=== PATIENT | male | born 1955 | race Caucasian/White ===

== ENCOUNTER 2018-02-11 08:04 | Day surgery (SDC) | payer OTHER ==
[2018-02-11 08:53] VITALS: BMI 31.8
[2018-02-11 09:12] LABS: BASO % 0.7 % (0.0-2.0); EOS # 0.1 K/uL (0.0-0.7); EOS % 1.8 % (0.0-4.0); HEMOGLOBIN 15.3 g/dL (12.0-18.0); LYMPH # 2.2 K/uL (1.0-4.3); LYMPH % 36.5 % (20.0-40.0); MEAN CELL VOLUME 85.6 fL (80.0-94.0); MEAN CORPUSCULAR HEMOGLOBIN 28.8 pg (27.0-31.0); MEAN CORPUSCULAR HGB CONC 33.7 g/dL (33.0-37.0); MEAN PLATELET VOLUME 9.9 fL (7.2-11.7); MONO # 0.5 K/uL (0.0-0.8); MONO % 8.5 % (0.0-10.0); NEUT # 3.2 K/uL (1.8-7.0); NEUT % 52.5 % (50.0-75.0); NRBC % 0.1 % (0.0-2.0); RBC 5.31 Mil/uL (4.40-5.90); RED CELL DISTRIBUTION WIDTH 13.9 % (11.5-14.5); WHITE BLOOD COUNT 6.1 K/uL (4.8-10.8)
[2018-02-11 09:20] LABS: INR 1.2
[2018-02-11 09:21] LABS: PROTHROMBIN TIME 13.2 SECONDS (9.7-12.2)
[2018-02-11 09:41] LABS: ALB/GLOB RATIO 1.5 (1.0-2.1); ALBUMIN 4.5 g/dL (3.5-5.0); ALT/SGPT 27 U/L (21-72); AST/SGOT 22 U/L (17-59); BLOOD UREA NITROGEN 20 mg/dL (9-20); CALCIUM 9.5 mg/dl (8.6-10.4); GFR AFRICAN-AMERICAN > 60; GFR NON-AFRICAN AMERICAN > 60
[2018-02-11] MEDS ORDERED: Verapamil 2 ML ONE (10:34)
[2018-02-11] MEDS ORDERED: Iodixanol 320 MG/ML 200 ML BOTTLE IV ONE (10:35)
[2018-02-11] MEDS ORDERED: Midazolam 2 MG/2 ML VIAL ONE (10:35)
[2018-02-11] MEDS ORDERED: Lidocaine 2% MPF (5 ml) Inj ONE (10:35)
[2018-02-11] MEDS ORDERED: Nitroglycerin 50mg in D5W 50 MG/250 ML BOTTLE IV ONE (10:35)
--- NOTE | 2018-02-14 12:44 | CARD ---
APPROVED REPORT Date of service: 02/11/2018 EKG Measurement Heart [id number] <Conclusion> Normal sinus rhythm Normal ECG
--- NOTE | 2018-02-16 20:32 | CARDCATH ---
PROCEDURE DATE: 02/11/2018 PROCEDURES: 1. Left heart catheterization. 2. Coronary angiogram. 3. Aortic root angiogram. CLINICAL INDICATIONS: 1. Angina. 2. Diabetes. 3. Abnormal stress test. REFERRING PHYSICIAN: Erna Breen MD. PERFORMING PHYSICIAN: Carl Wise MD DESCRIPTION OF PROCEDURE: After informed consent, the patient was prepped and draped in the usual sterile fashion. Lidocaine 2% was given in the right wrist for local anesthesia. Using micropuncture technique, a 6-Mozambican sheath was introduced into right atrial artery. A JR4 6-[place]oz[place]ican diagnostic catheter crossed into left ventricle. LV end-diastolic pressure measured. Contrast injected and LV angiogram was done. Then, the catheter was pulled back across the aortic valve. Gradient across the aortic valve was measured. Then, the same catheter was engaged in the right coronary artery. Contrast injected and right coronary artery angiogram was done. A 6-Moz[place]ican [place] catheter engaged into left main coronary artery. Contrast injected and left coronary angiogram was done. A 6-Mozambican pigtail catheter introduced into ascending aorta. Contract injected and ascending aortic root angiogram performed. The patient tolerated the procedure well. Radiological supervision and radiological interpretation of the above mentioned angiograms were done. FINDINGS: 1. Left main coronary artery is patent. 2. LAD and diagonal branches are patent. 3. Left circumflex and obtuse marginal branches are patent. 4. Right coronary artery is dominant and patent. 5. LV ejection fraction is approximately 65%. No wall motion abnormality is noted. EDP is 18. No gradient across the aortic valve. 6. Ascending root angiogram confirms no dissection. No aortic aneurysm. IMPRESSION: 1. Normal coronaries. 2. Normal left ventricular systolic function. 3. Normal aortic root angiogram. Carl Wise MD
== END 2018-02-11 14:20 | disposition home or self-care (01) ==
LOC: C.CATHLAB 08:04
PROVIDERS: ATTEND Internal Medicine Cardiovascular Disease
DX: I20.9 Angina pectoris, unspecified (principal); R94.39 Abnormal result of other cardiovascular function study; E11.9 Type 2 diabetes mellitus without complications
CPT/HCPCS: 36415; 80053; 85025; 85610; 85730; 93005; 93452; C1769; C1887; C1894; J1644; J2001; J2250; J3010; Q9966

== ENCOUNTER 2018-09-12 22:21 | Inpatient (IN) | payer OTHER ==
[2018-09-12 22:22] VITALS: BMI 31.8
--- NOTE | 2018-09-12 22:33 | C.PDOC ---
History Of Present Illness 63 year old male presents to the ED c/o chest pain that started 30 minutes [employer]. Patient reports some SOB associated with his chest pain. Patient able to speak in full sentences, appears anxious. Patient denies fever, chills, nausea, vomit, diarrhea, headache, rash, weakness, numbness. Time Seen by Provider: 09/12/18 22:32 Chief Complaint (Nursing): Chest Pain History Per: Patient History/Exam Limitations: no limitations Onset/Duration Of Symptoms: Mins (30) Current Symptoms Are (Timing): Still Present Quality: "Pain" Recent travel outside of the [place]: No Additional History Per: Patient Past Medical History Reviewed: Historical Data, Nursing Documentation, Vital Signs Vital Signs: Last Vital Signs Temp 97.8 F 09/12/18 22:27 Pulse 89 09/12/18 22:27 Resp 16 09/12/18 22:27 BP 141/96 H 09/12/18 22:27 Pulse Ox 98 09/12/18 22:27 - Medical History PMH: No Chronic Diseases Surgical History: No Surg Hx Family History: States: No Known Family Hx - Social History Hx Alcohol Use: No Hx Substance Use: No Review Of Systems Constitutional: Negative for: Fever, Chills Eyes: Negative for: Vision Change Cardiovascular: Positive for: Chest Pain. Negative for: Palpitations Respiratory: Positive for: Shortness of Breath. Negative for: Cough Gastrointestinal: Negative for: Nausea, Vomiting, Abdominal Pain Skin: Negative for: Rash Neurological: Negative for: Weakness, Numbness, Headache, Dizziness Physical Exam - Physical Exam Appears: Non-toxic, No Acute Distress, Other (anxious) Skin: Warm, Dry Head: Normacephalic Eye(s): bilateral: Normal Inspection Neck: Supple Chest: Symmetrical Cardiovascular: Rhythm Regular Respiratory: No Rales, No Rhonchi, No Wheezing Gastrointestinal/Abdominal: Soft, No Tenderness, No Guarding, No Rebound Extremity: Bilateral: Atraumatic, Normal Color And Temperature, Normal ROM Neurological/Psych: Oriented x3, Normal Speech, Normal Cognition Gait: Steady ED Course And Treatment - Laboratory Results Result Diagrams: 09/12/18 22:42 09/12/18 22:42 ECG: Interpreted By Me, Viewed By Me ECG Rhythm: Sinus Rhythm (88), Nonspecific Changes O2 Sat by Pulse Oximetry: 98 (ON RA) Pulse Ox Interpretation: Normal - Radiology CXR: Interpreted by Me, Viewed By Me CXR Interpretation: Yes: Infiltrates (? rll). No: Cardiomegaly, Other (? small left effusion) - CT Scan/US CT chest Other Rad Studies (CT/US): Read By Radiologist, Radiology Report Reviewed CT/US Interpretation: EXAM: CTA Chest with Intravenous Contrast for Pulmonary Embolism. CLINICAL HISTORY: Sob and upper left chest pain. TECHNIQUE: Axial CTA images of the chest with intravenous contrast using a pulmonary embolism protocol. Reconstructed images were created and reviewed. 0.00 mGy-cm. CONTRAST: With; 100MLS OMNI 300 was administered without incident. COMPARISON: None provided. FINDINGS: PULMONARY ARTERIES. No evidence of central or segmental pulmonary embolism is seen. AORTA. There is no evidence for aneurysm or dissection of the thoracic aorta. LUNGS. Posterior bibasilar pneumonic consolidations are present; possibly consistent with aspiration pneumonitis. PLEURAL SPACES. No pleural effusion seen. No pneumothorax evident. HEART. Heart size is within normal limits. No pericardial effusion. LYMPH NODES. No lymphadenopathy is evident. BONES. No focal osseous abnormality or acute fracture. UPPER ABDOMEN. Images of the upper abdomen demonstrate hepatomegaly. The liver measured an estimated 17.6 cm in the midclavicular line. There is also seen to have been prior cholecystectomy. IMPRESSION: 1. No identification of pulmonary embolism. 2. Posterior bibasilar pneumonic consolidations. Possibly consistent with aspiration pneumonitis. 3. Mild hepatomegaly. Measurement is given above. 4. Status post cholecystectomy. . Electronically signed on Sep 13, 2018 12:08:44 AM EST by: Dony Martell M.D., Certified by JESSI, MSK, Neuroradiology Progress Note: Plan: - Labs. - EKG. - CXR. - Aspirin 325 mg PO. - Morphine 2 mg IVP. - Zofran 4 mg IVP. - UA Critical Care Time - Critical Care Note Total Time (in mins): 30 Documented critical care: time excludes all time spent performing seperately billable procedures. Disposition Discussed With : Erna Breen Comment: accepted the pt on his service and took over the care at 12:16AM Doctor Will See Patient In The: Hospital Counseled Patient/Family Regarding: Studies Performed, Diagnosis - Disposition Disposition: HOSPITALIZED Disposition Time: 00:16 Condition: GUARDED - POA Present On Arrival: Poor Glycemic Control - Clinical Impression Clinical Impression: Chest pain, Pneumonitis - Scribe Statement The provider has reviewed the documentation as recorded by the Scribe Mukund Dunne All medical record entries made by the Scribe were at my direction and personally dictated by me. I have reviewed the chart and agree that the record accurately reflects my personal performance of the history, physical exam, medical decision making, and the department course for this patient. I have also personally directed, reviewed, and agree with the discharge instructions and disposition. Decision To Admit - Pt Status Changed To: Hospital Disposition Of: Inpatient - Admit Certification Admit to Inpatient:: After my assessment, the patient will require hospitalization for at least two midnights. This is because of the severity of symptoms shown, intensity of services needed, and/or the medical risk in this patient being treated as an outpatient. - InPatient: Physician Admission Certification: I certify that this patient requires 2 or more midnights of care for the following reason:: After my assessment, the patient will require hospitalization for at least two midnights. This is because of the severity of symptoms shown, intensity of services needed, and/or the medical risk in this patient being treated as an outpatient. - . Bed Request Type: Telemetry Admitting Physician: Erna Breen Patient Diagnosis: Chest pain, Pneumonitis
[2018-09-12] MEDS ORDERED: Aspirin 325 mg EC Tablets PO STA (22:35)
[2018-09-12 22:45] LABS: BASO % 0.6 % (0.0-2.0); EOS # 0.2 K/uL (0.0-0.7); HEMOGLOBIN 15.4 g/dL (12.0-18.0); LYMPH # 2.6 K/uL (1.0-4.3); LYMPH % 33.1 % (20.0-40.0); MEAN CELL VOLUME 86.5 fL (80.0-94.0); MEAN CORPUSCULAR HEMOGLOBIN 28.9 pg (27.0-31.0); MEAN CORPUSCULAR HGB CONC 33.4 g/dL (33.0-37.0); MEAN PLATELET VOLUME 9.4 fL (7.2-11.7); MONO # 0.8 K/uL (0.0-0.8); MONO % 10.8 % (0.0-10.0); NEUT # 4.2 K/uL (1.8-7.0); NEUT % 53.5 % (50.0-75.0); NRBC % 0.1 % (0.0-2.0); RBC 5.31 Mil/uL (4.40-5.90); RED CELL DISTRIBUTION WIDTH 13.3 % (11.5-14.5); WHITE BLOOD COUNT 7.8 K/uL (4.8-10.8)
[2018-09-12 22:54] LABS: INR 1.1; PARTIAL THROMBOPLASTIN TIME 38 SECONDS (21-34); PROTHROMBIN TIME 12.3 SECONDS (9.7-12.2)
[2018-09-12 23:00] LABS: ALB/GLOB RATIO 1.5 (1.0-2.1); ALBUMIN 4.5 g/dL (3.5-5.0); ALT/SGPT 24 U/L (21-72); AST/SGOT 23 U/L (17-59); BLOOD UREA NITROGEN 23 mg/dL (9-20); CALCIUM 9.5 mg/dl (8.6-10.4); GFR NON-AFRICAN AMERICAN > 60
[2018-09-12 23:11] LABS: B-TYPE NATRIURETIC PEPTIDE 12.9 pg/mL (0-900)
[2018-09-12 23:15] LABS: D DIMER < 200 ng/mlDDU (0-243)
[2018-09-12] MEDS ORDERED: Iohexol 300 100 ML IJ ONE (23:16)
[2018-09-13] MEDS ORDERED: Piperacillin/Tazobact 3.375 gm 100 ML IVPB STA (00:14)
[2018-09-13] MEDS ORDERED: Dextrose 50% SYRINGE Inj (50 ml) IV PRN (02:11)
[2018-09-13] MEDS ORDERED: Glucagon Recombinant 1 mg Inj IM PRN (02:11)
[2018-09-13 02:55] LABS: SQUAMOUS EPITHIAL < 1 /hpf (0-5); URINE BILIRUBIN NEGATIVE (NEGATIVE); URINE BLOOD NEGATIVE (NEGATIVE); URINE CLARITY Clear (Clear); URINE COLOR Yellow (YELLOW); URINE GLUCOSE (UA) NORMAL (Normal); URINE LEUKOCYTE ESTERASE NEG Leu/uL (Negative); URINE PROTEIN NEGATIVE (NEGATIVE); URINE UROBILINOGEN NORMAL mg/dL (0.2-1.0)
[2018-09-13 08:22] LABS: CK-MB 0.53 ng/mL (0.0-3.38)
[2018-09-13] MEDS: Enoxaparin 40 mg Syringe SC SCH (10:11)
--- NOTE | 2018-09-13 11:13 | CP.PCM.CON ---
History of Present Illness - History of Present Illness History of Present Illness: CC chest pain CT angio of chest - NO PE; NO AORTIC DISSECTION Review of Systems - Cardiovascular Cardiovascular: Chest Pain - Respiratory Respiratory: Dyspnea - Gastrointestinal Gastrointestinal: absent: Abdominal Pain - Musculoskeletal Musculoskeletal: absent: Abnormal Gait Past Patient History - Past Medical History & Family History Past Medical History?: Yes - Past Social History Smoking Status: Never Smoked - ENDOCRINE/METABOLIC Hx Endocrine Disorders: Yes Hx Diabetes Mellitus Type 2: Yes - MUSCULOSKELETAL/RHEUMATOLOGICAL Hx Falls: No - PSYCHIATRIC Hx Substance Use: No - SURGICAL HISTORY Hx Surgeries: No - ANESTHESIA Hx Anesthesia: Yes Hx Anesthesia Reactions: No Meds Allergies/Adverse Reactions: Allergies Allergy/AdvReac Type Severity Reaction Status Date / Time No Known Allergies Allergy Verified 02/11/18 08:53 - Medications Medications: Current Medications Dextrose (Dextrose 50% Inj) 0 ml IV STAT PRN; Protocol PRN Reason: Hypoglycemia Protocol Dextrose (Glutose 15) 0 gm PO ONCE PRN; Protocol PRN Reason: Hypoglycemia Protocol Enoxaparin Sodium (Lovenox) 40 mg SC DAILY [facility] Last Admin: 09/13/18 10:11 Dose: 40 mg Glucagon (Glucagen Diagnostic Kit) 0 mg IM STAT PRN; Protocol PRN Reason: Hypoglycemia Protocol Dextrose (Dextrose 5% In Water 1000 Ml) 1,000 mls @ 0 mls/hr IV .Q0M PRN; Protocol PRN Reason: Hypoglycemia Protocol Influenza Virus Vaccine (Flucelvax Quad 3775-0925 Syr) 60 mcg IM .ONCE ONE Stop: 09/14/18 10:01 Ketorolac Tromethamine (Toradol) 30 mg IVP Q6 PRN PRN Reason: Pain, moderate (4-7) Last Admin: 09/13/18 07:16 Dose: 30 mg Metformin HCl (Glucophage) 500 mg PO BIDCC [facility] Last Admin: 09/13/18 08:11 Dose: Not Given Physical Exam - Constitutional Additional comments: ANXIOUS - Head Exam Head Exam: NORMAL INSPECTION - Eye Exam Eye Exam: absent: Scleral icterus - ENT Exam ENT Exam: Mucous Membranes Moist - Neck Exam Neck exam: Positive for: Full Rom - Respiratory Exam Respiratory Exam: NORMAL BREATHING PATTERN - Cardiovascular Exam Cardiovascular Exam: REGULAR RHYTHM - GI/Abdominal Exam GI & Abdominal Exam: Soft - Extremities Exam Extremities exam: Negative for: calf tenderness, pedal edema - Neurological Exam Neurological exam: Alert, Oriented x3 Results - Vital Signs Recent Vital Signs: Last Vital Signs Temp 98.3 F 09/13/18 07:00 Pulse 71 09/13/18 07:00 Resp 20 09/13/18 07:00 BP 100/61 09/13/18 07:00 Pulse Ox 97 09/13/18 07:00 - Labs Result Diagrams: 09/12/18 22:42 09/12/18 22:42 Labs: Laboratory Results - last 24 hr 09/12/18 09/12/18 09/12/18 22:42 22:42 22:42 WBC 7.8 RBC 5.31 Hgb 15.4 Hct 46.0 MCV 86.5 MCH 28.9 MCHC 33.4 RDW 13.3 Plt Count 142 MPV 9.4 Neut % (Auto) 53.5 Lymph % (Auto) 33.1 Perry % (Auto) 10.8 H Eos % (Auto) 2.0 Baso % (Auto) 0.6 Neut # (Auto) 4.2 Lymph # (Auto) 2.6 Perry # (Auto) 0.8 Eos # (Auto) 0.2 Baso # (Auto) 0.0 PT 12.3 H INR 1.1 APTT 38 H D-Dimer, Quantitative < 200 Sodium 141 Potassium 4.3 Chloride 103 Carbon Dioxide 30 Anion Gap 13 BUN 23 H Creatinine 0.7 L Est GFR ( Amer) > 60 Est GFR (Non-Af Amer) > 60 POC Glucose (mg/dL) Random Glucose 142 H D Calcium 9.5 Total Bilirubin 0.5 AST 23 ALT 24 Alkaline Phosphatase 82 Total Creatine Kinase CK-MB (Mass) Troponin I < 0.0120 NT-Pro-B Natriuret Pep 12.9 Total Protein 7.6 Albumin 4.5 Globulin 3.0 Albumin/Globulin Ratio 1.5 Urine Color Urine Clarity Urine pH Ur Specific [place] Urine Protein Urine Glucose (UA) Urine Ketones Urine Blood Urine Nitrate Urine Bilirubin Urine Urobilinogen Ur Leukocyte Esterase Urine WBC (Auto) Urine RBC (Auto) Ur Squamous Epith Cells 09/13/18 09/13/18 09/13/18 02:35 06:15 07:43 WBC RBC Hgb Hct MCV MCH MCHC RDW Plt Count MPV Neut % (Auto) Lymph % (Auto) Perry % (Auto) Eos % (Auto) Baso % (Auto) Neut # (Auto) Lymph # (Auto) Perry # (Auto) Eos # (Auto) Baso # (Auto) PT INR APTT D-Dimer, Quantitative Sodium Potassium Chloride Carbon Dioxide Anion Gap BUN Creatinine Est GFR ( Amer) Est GFR (Non-Af Amer) POC Glucose (mg/dL) 119 H Random Glucose Calcium Total Bilirubin AST ALT Alkaline Phosphatase Total Creatine Kinase 28 L CK-MB (Mass) 0.53 Troponin I < 0.0120 NT-Pro-B Natriuret Pep Total Protein Albumin Globulin Albumin/Globulin Ratio Urine Color Yellow Urine Clarity Clear Urine pH 6.0 Ur Specific [place] > 1.060 H Urine Protein Negative Urine Glucose (UA) Normal Urine Ketones Negative Urine Blood Negative Urine Nitrate Negative Urine Bilirubin Negative Urine Urobilinogen Normal Ur Leukocyte Esterase Neg Urine WBC (Auto) < 1 Urine RBC (Auto) < 1 Ur Squamous Epith Cells < 1 Assessment & Plan - Assessment and Plan (Free Text) Assessment: ACS Plan: Trops Echo Lexiscan - if positive for ischemia, will do cath
[2018-09-13 14:20] LABS: CK-MB 0.61 ng/mL (0.0-3.38)
--- NOTE | 2018-09-13 15:40 | RAD ---
Date of service: 09/12/2018 PROCEDURE: CHEST RADIOGRAPH, 1 VIEW HISTORY: chest pain COMPARISON: None available. FINDINGS: LUNGS: No infiltrate. PLEURA: Possible very small left pleural effusion versus chronic pleural thickening. No right pleural effusion. No pneumothorax. CARDIOVASCULAR: No aortic atherosclerotic calcification present. Normal. OSSEOUS STRUCTURES: No significant abnormalities. VISUALIZED UPPER ABDOMEN: Normal. OTHER FINDINGS: None. IMPRESSION: Possible small left pleural effusion. Otherwise unremarkable.
--- NOTE | 2018-09-13 16:50 | CT ---
Date of service: 09/12/2018 PROCEDURE: CT Chest with contrast (Pulmonary Angiogram) HISTORY: sob COMPARISON: None available. TECHNIQUE: Axial computed tomography images were obtained of the chest in the pulmonary arterial phase of enhancement. Coronal and sagittal reformatted images were created and reviewed. Intravenous contrast dose: 100 mL Omnipaque 300 Radiation dose: Total exam DLP = 627.96 mGy-cm. This CT exam was performed using one or more of the following dose reduction techniques: Automated exposure control, adjustment of the mA and/or kV according to patient size, and/or use of iterative reconstruction technique. FINDINGS: PULMONARY ARTERIES: Unremarkable. No pulmonary embolism. AORTA: No acute findings. No thoracic aortic aneurysm. No aortic atherosclerotic calcification or mural plaque present. LUNGS: Bilateral lower lobe infiltrates. Lingular subsegmental atelectasis. PLEURAL SPACES: Unremarkable. No effusion or pneumothorax. HEART: Unremarkable. No cardiomegaly. No significant pericardial effusion. LYMPH NODES: No lymphadenopathy. BONES, CHEST WALL: Unremarkable. No fracture or destructive lesion OTHER FINDINGS: Unremarkable. IMPRESSION: No evidence of pulmonary embolism. Bilateral lower lobe pulmonary infiltrates. The preliminary findings for this examination were reported by [facility] at 12:08 a.m. on 09/13/2018. There is concurrence of this report with the preliminary findings.
[2018-09-13] MEDS: Apap-Butalbital-Caffeine 325-50-40mg Tab PO PRN (21:53)
[2018-09-13 23:26] LABS: CK-MB 0.47 ng/mL (0.0-3.38)
[2018-09-14] MEDS ORDERED: Influenza Vaccine 60 mcg/0.5 mL SYR (4YR UP) IM ONE (10:00)
[2018-09-14] MEDS: Enoxaparin 40 mg Syringe SC SCH (10:01)
[2018-09-14] MEDS: Apap-Butalbital-Caffeine 325-50-40mg Tab PO PRN ×2 (17:13→21:39)
--- NOTE | 2018-09-14 17:42 | CP.PCM.PN ---
Subjective - Date & Time of Evaluation Date of Evaluation: 09/14/18 Time of Evaluation: 12:45 - Subjective Subjective: no chest pain anxious NAD Objective - Vital Signs/Intake and Output Vital Signs (last 24 hours): Temp Pulse Resp BP Pulse Ox 98 F 75 18 104/66 94 L 09/14/18 15:35 09/14/18 16:00 09/14/18 15:35 09/14/18 15:35 09/14/18 15:35 Intake and Output: 09/14/18 09/14/18 06:59 18:59 Intake Total 600 Balance 600 - Medications Medications: Current Medications Acetaminophen/Butalbital/Caffeine (Fioricet) 1 tab PO Q4 PRN PRN Reason: Headache Last Admin: 09/14/18 17:13 Dose: 1 tab Aspirin (Aspirin Chewable) 81 mg PO DAILY [facility] Last Admin: 09/14/18 10:01 Dose: 81 mg Dextrose (Dextrose 50% Inj) 0 ml IV STAT PRN; Protocol PRN Reason: Hypoglycemia Protocol Dextrose (Glutose 15) 0 gm PO ONCE PRN; Protocol PRN Reason: Hypoglycemia Protocol Enoxaparin Sodium (Lovenox) 40 mg SC DAILY [facility] Last Admin: 09/14/18 10:01 Dose: 40 mg Glucagon (Glucagen Diagnostic Kit) 0 mg IM STAT PRN; Protocol PRN Reason: Hypoglycemia Protocol Dextrose (Dextrose 5% In Water 1000 Ml) 1,000 mls @ 0 mls/hr IV .Q0M PRN; Protocol PRN Reason: Hypoglycemia Protocol Influenza Virus Vaccine (Flucelvax Quad [id number] Syr) 60 mcg IM .ONCE ONE Stop: 09/15/18 14:01 Ketorolac Tromethamine (Toradol) 30 mg IVP Q6 PRN PRN Reason: Pain, moderate (4-7) Last Admin: 09/14/18 08:46 Dose: 30 mg Metformin HCl (Glucophage) 500 mg PO BIDCC [facility] Last Admin: 09/14/18 17:14 Dose: 500 mg - Labs Labs: 09/12/18 22:42 09/12/18 22:42 PT 12.3 SECONDS (9.7-12.2) H 09/12/18 22:42 INR 1.1 09/12/18 22:42 APTT 38 SECONDS (21-34) H 02/22/19 22:42 - Constitutional Appears: Non-toxic - Head Exam Head Exam: NORMAL INSPECTION - Eye Exam Eye Exam: absent: Scleral icterus - ENT Exam ENT Exam: Mucous Membranes Moist - Neck Exam Neck Exam: Full ROM - Respiratory Exam Respiratory Exam: Clear to Ausculation Bilateral - Cardiovascular Exam Cardiovascular Exam: REGULAR RHYTHM - GI/Abdominal Exam GI & Abdominal Exam: Soft - Extremities Exam Extremities Exam: Calf Tenderness. absent: Pedal Edema - Neurological Exam Neurological Exam: Alert, Normal Gait, Oriented x3 Assessment and Plan - Assessment and Plan (Free Text) Assessment: ACS HTN Anxiety disorder Plan: Lexiscan ECHO in am
[2018-09-15 00:17] VITALS: RESP 20; O2SAT 95
--- NOTE | 2018-09-15 08:02 | CP.PCM.PN ---
Subjective - Date & Time of Evaluation Date of Evaluation: 09/15/18 Time of Evaluation: 08:00 - Subjective Subjective: Medicine Progress Note for Dr. Breen: Patient was seen and examined at bedside. Patient states he is feeling better and is ready to go home. Patient denies chest pain, shortness of breath, palpitations, nausea, vomiting, diarrhea or constipation. Objective - Vital Signs/Intake and Output Vital Signs (last 24 hours): Temp Pulse Resp BP Pulse Ox 97.8 F 65 20 99/60 L 95 09/15/18 00:00 09/15/18 01:00 09/15/18 00:00 09/15/18 00:00 09/15/18 00:00 - Medications Medications: Current Medications Acetaminophen/Butalbital/Caffeine (Fioricet) 1 tab PO Q4 PRN PRN Reason: Headache Last Admin: 09/14/18 21:39 Dose: 1 tab Aspirin (Aspirin Chewable) 81 mg PO DAILY [facility] Last Admin: 09/14/18 10:01 Dose: 81 mg Dextrose (Dextrose 50% Inj) 0 ml IV STAT PRN; Protocol PRN Reason: Hypoglycemia Protocol Dextrose (Glutose 15) 0 gm PO ONCE PRN; Protocol PRN Reason: Hypoglycemia Protocol Enoxaparin Sodium (Lovenox) 40 mg SC DAILY [facility] Last Admin: 09/14/18 10:01 Dose: 40 mg Glucagon (Glucagen Diagnostic Kit) 0 mg IM STAT PRN; Protocol PRN Reason: Hypoglycemia Protocol Dextrose (Dextrose 5% In Water 1000 Ml) 1,000 mls @ 0 mls/hr IV .Q0M PRN; Protocol PRN Reason: Hypoglycemia Protocol Influenza Virus Vaccine (Flucelvax Quad [id number] Syr) 60 mcg IM .ONCE ONE Stop: 09/15/18 14:01 Metformin HCl (Glucophage) 500 mg PO BIDCC [facility] Last Admin: 09/14/18 17:14 Dose: 500 mg - Labs Labs: 09/12/18 22:42 09/12/18 22:42 PT 12.3 SECONDS (9.7-12.2) H 09/12/18 22:42 INR 1.1 09/12/18 22:42 APTT 38 SECONDS (21-34) H 09/12/18 22:42 - Constitutional Appears: No Acute Distress - Head Exam Head Exam: ATRAUMATIC, NORMAL INSPECTION - Eye Exam Eye Exam: EOMI, Normal appearance - ENT Exam ENT Exam: Mucous Membranes Moist - Respiratory Exam Respiratory Exam: Clear to Ausculation Bilateral, NORMAL BREATHING PATTERN - Cardiovascular Exam Cardiovascular Exam: REGULAR RHYTHM, +S1, +S2 - GI/Abdominal Exam GI & Abdominal Exam: Soft, Normal Bowel Sounds. absent: Tenderness - Extremities Exam Extremities Exam: Normal Inspection. absent: Pedal Edema, Tenderness - Neurological Exam Neurological Exam: Alert, Awake, Oriented x3 - Psychiatric Exam Psychiatric exam: Normal Affect - Skin Skin Exam: Normal Color Assessment and Plan - Assessment and Plan (Free Text) Assessment: Chest Pain - resolved - Cardiology Consult: Dr. Torres --> help appreciated * f/u ECHO * f/u agusto stress test - D-dimer <200 - proBNP 12.9 - Trop negative x2 - Aspirin 81mg daily - Images: * Chest Xray: Possible small left pleural effusion. Otherwise unremarkable. * Chest CT: No evidence of pulmonary embolism. Bilateral lower lobe pulmonary infiltrates. History of Type II Diabetes - hA1c 6.2 - Lipid Panel: Total cholesterol 130; LDL 79; HDL 39; Triglycerides 107 - Continue Metformin 500mg po bid - Hypoglycemia Protocol Prophylaxis - SCDs - Lovenox 40mg SC daily - GI prophylaxis not indicated Disposition: Discussed with patient to follow up with Dr. Torres at the end of this week for ECHO and stress test results. Discussed with patient to follow up with PMD, Dr. Breen in 1-2 weeks. Case discussed with Dr. Jamshid Payne PGY-2
[2018-09-15] MEDS ORDERED: Caffeine Citrated **INJ** 20 MG/ML IV ONE (09:10)
--- NOTE | 2018-09-15 10:45 | HP ---
HISTORY OF PRESENT ILLNESS: The patient is a 63-year-old male who has chief complaint of chest pain severe, left sided. The patient came to the ER, advised admission. PAST MEDICAL HISTORY: The patient has diabetes. PHYSICAL EXAMINATION: GENERAL: The patient is awake, oriented. VITAL SIGNS: Temperature 98, . HEENT: Within normal limits. NECK: Supple. CHEST: Symmetrical. HEART: Regular. ABDOMEN: Soft. EXTREMITIES: No edema. IMPRESSION: The patient suffers from pneumonia. The patient is to get bedrest, antibiotic. Erna Breen MD
[2018-09-15] MEDS: Enoxaparin 40 mg Syringe SC SCH (11:17)
[2018-09-15 11:43] LABS: BASO % 0.3 % (0.0-2.0); EOS # 0.1 K/uL (0.0-0.7); EOS % 1.8 % (0.0-4.0); HEMOGLOBIN 14.9 g/dL (12.0-18.0); LYMPH # 1.6 K/uL (1.0-4.3); LYMPH % 31.9 % (20.0-40.0); MEAN CELL VOLUME 87.8 fL (80.0-94.0); MEAN CORPUSCULAR HEMOGLOBIN 29.1 pg (27.0-31.0); MEAN CORPUSCULAR HGB CONC 33.2 g/dL (33.0-37.0); MEAN PLATELET VOLUME 9.8 fL (7.2-11.7); MONO # 0.4 K/uL (0.0-0.8); MONO % 7.2 % (0.0-10.0); NEUT % 58.8 % (50.0-75.0); NRBC % 0.1 % (0.0-2.0); RBC 5.11 Mil/uL (4.40-5.90); RED CELL DISTRIBUTION WIDTH 13.2 % (11.5-14.5); WHITE BLOOD COUNT 5.1 K/uL (4.8-10.8)
[2018-09-15 12:08] LABS: ALB/GLOB RATIO 1.6 (1.0-2.1); ALBUMIN 4.1 g/dL (3.5-5.0); ALT/SGPT 22 U/L (21-72); AST/SGOT 27 U/L (17-59); BLOOD UREA NITROGEN 22 mg/dL (9-20); CALCIUM 9.1 mg/dl (8.6-10.4); GFR NON-AFRICAN AMERICAN > 60; HDL CHOLESTEROL 39 mg/dL (30-70)
[2018-09-15 12:10] LABS: LDL CHOLESTEROL 79 mg/dL (0-129)
[2018-09-15] MEDS ORDERED: Influenza Vaccine 60 mcg/0.5 mL SYR (4YR UP) IM ONE ×2 (14:00→15:55)
[2018-09-15 16:16] VITALS: BP 115/74; PULSE 74; TEMP 98.7
[2018-09-15] MEDS: Apap-Butalbital-Caffeine 325-50-40mg Tab PO PRN (17:22)
--- NOTE | 2018-09-15 19:49 | CARD ---
APPROVED REPORT Date of service: 09/15/2018 EXAM: Two-dimensional and M-mode echocardiogram with Doppler and color Doppler. Other Information Quality : GoodRhythm : INDICATION Chest Pain 2D DIMENSIONS IVSd0.9 (0.7-1.1cm)LVDd5.0 (3.9-5.9cm) PWd0.8 (0.7-1.1cm)LA Lseeyv67 (18-58mL) LVDs3.1 (2.5-4.0cm)FS (%) 37.9 % LVEF (%)67.8 (>50%)LVEF (Rodgers's)64.82 % M-Mode DIMENSIONS Left Atrium (MM)3.77 (2.5-4.0cm)IVSd0.94 (0.7-1.1cm) Aortic Root4.40 (2.2-3.7cm)LVDd5.23 (4.0-5.6cm) Aortic Cusp Exc.2.15 (1.5-2.0cm)PWd0.75 (0.7-1.1cm) FS (%) 33 %LVDs3.48 (2.0-3.8cm) LVEF (%)62 (>50%) Mitral Valve MV E Zngirohh77.3cm/sMV A Cokzajci63.9cm/sE/A ratio1.1 TDI Lateral E' Peak V10.16cm/sMedial E' Peak V7.26cm/sE/Lateral E'7.1 E/Medial E'10.0 Tricuspid Valve TR Peak [id number]/sTR Peak Gr.[id number] LEFT VENTRICLE The left ventricle is normal size. There is normal left ventricular wall thickness. The left ventricular function is normal. The left ventricular ejection fraction is within the normal range. No regional wall motion abnormalities noted. The left ventricular diastolic function is normal. No left ventricle thrombus noted on this study. There is no ventricular septal defect visualized. There is no left ventricular aneurysm. There is no mass noted in the left ventricle. RIGHT VENTRICLE The right ventricle is normal size. There is normal right ventricular wall thickness. The right ventricular systolic function is normal. ATRIA The left atrium size is normal. The right atrium size is normal. The interatrial septum is intact with no evidence for an atrial septal defect. AORTIC VALVE The aortic valve is normal in structure and function. No aortic regurgitation is present. There is no aortic valvular stenosis. There is no aortic valvular vegetation. MITRAL VALVE The mitral valve is normal in structure and function. There is no evidence of mitral valve prolapse. There is no mitral valve stenosis. There is no mitral valve regurgitation noted. TRICUSPID VALVE The tricuspid valve is normal in structure and function. There is no tricuspid valve regurgitation noted. There is no tricuspid valve prolapse or vegetation. There is no tricuspid valve stenosis. PULMONIC VALVE The pulmonary valve is normal in structure and function. There is no pulmonic valvular regurgitation. There is no pulmonic valvular stenosis. GREAT VESSELS The aortic root is normal in size. The ascending aorta is normal in size. The pulmonary artery is normal. The IVC is normal in size and collapses >50% with inspiration. PERICARDIAL EFFUSION The pericardium appears normal. There is no pleural effusion. <Conclusion> No regional wall motion abnormalities noted.
--- NOTE | 2018-09-16 | CARD ---
APPROVED REPORT Date of service: 09/15/2018 Protocol: LEXISCAN Test Type: LEXISCANSTRESS Test Indications: CP Medical History: CP Target HR: 158 bpm Resting ECG: NSR Resting Heart Rate: 64 bpm Resting Blood Pressure: 132/80mmHg submaximum (85%): 134 bpm TEST SUMMARY EZBKINMKTRBRDP97:01..1.064/.0. PREINFSNHYPERV.06:[id number]/80.0. INFUSIONDOSE 100:300.00.01.065/.0. TPMUKUTCR40:330.00.01.023221/80.0. PROCEDURE Pharmacologic stress testing was performed using 0.4mg per 5ml of regadenoson given intravenously over 7-10 seconds. POST EXERCISE Reason for Termination: Protocol Completed Target HR: No Max HR: 65 bpm 59% of Maximum Predicted HR: 158 bpm Exercise duration: 00:30 min:sec, 0 Stage Exercise capacity: 1.0METs Max Blood Pressure: 132/80mmHg Blood Pressure response to exercise: normal resting BP - appropriate response Heart Rate response to exercise: appropriate Chest Pain: No, none Angina index: 0 Arrhythmia: No, none ST Change: No, none Deviation: 0 mm INTERPRETATION Stress EKG Conclusion: NEGATIVE LEXISCAN STRESS TEST NORMAL BP RESPONSE TO LEXISCAN NUCLEAR STUDIES TO BE READ SEPARATELY EXAM: Myocardial Perfusion STRESS/REST Imaging Protocol The imaging protocol used to acquire images was Stress Tc-99m/rest Tc-99m 1 day Stress Spect myocardial perfusion imaging was performed in supine position 44 minutes following the injection of 13 mCi of Tc-99 Myoview. Gated Rest Spect was performed 43 minutes after intravenous 32.8 mCi Tc-99 Myoview injection. The images were gated to evaluate regional wall motion and calculate ventricular ejection fraction.Images were reconstructed using backfilter projection method in short horizontal and verticle long axis. Spect slices were generated. RESTING DATA JDH558.49vqEB9.30L/min ESV27.00mlMyocardial Wfse113.00g Av. Heart Rate73.00bpm EF73.00% STRESS DATA MVZ307.66mrLD7.70L/min ESV37.00mlMyocardial Qysj721.00g EF66.00% Regional WT score at stress:0.00 Regional WM score at stress:0.00 Summed WT score at stress:6.00 Av. Heart Rate67.00bpmSummed WM score at stress:1.00 LV Perf. Quant 17 Seg. SSS4.00 17 Seg. SRS5.00 17 Seg. SDS0.00 Stress Defect Extent (% LAD)0.00Rest Defect Extent (% LAD)0.00Rev. Defect Extent (% LAD)0.00 Stress Defect Extent (% LCX)27.50Rest Defect Extent (% LCX)32.50Rev. Defect Extent (% LCX)0.00 Stress Defect Extent (% RCA)0.00Rest Defect Extent (% RCA)1.10Rev. Defect Extent (% RCA)0.00 Stress Defect Extent (% BEN)7.00Rest Defect Extent (% BEN)10.70Rev. Defect Extent (% BEN)0.00 IMPRESSION Normal Myocardial Perfusion exercise stress study Left Ventricle LV Function:Left ventricle systolic function is normal. The Ejection Fraction is 65-70%. Metabolism/Perfusion Defects: There is no stress-induced ischemia noted. There are no perfusion/metabolism defects. Conclusion 1. There is no stress-induced ischemia noted. 2. Left ventricle systolic function is normal. 3. The Ejection Fraction is 65-70%.
== END 2018-09-15 18:05 | disposition home or self-care (01) | DRG 195 ==
LOC: C.ER 22:21 → C.6T 09-13 00:14
PROVIDERS: ADMIT Internal Medicine Pulmonary Disease; ATTEND Internal Medicine Pulmonary Disease
DX: J18.9 Pneumonia, unspecified organism (principal); R07.89 Other chest pain; I10 Essential (primary) hypertension; E11.9 Type 2 diabetes mellitus without complications; F41.9 Anxiety disorder, unspecified; Z79.84 Long term (current) use of oral hypoglycemic drugs; Z90.49 Acquired absence of other specified parts of digestive tract; Z79.82 Long term (current) use of aspirin